=== PATIENT | female | born 1980 | race Caucasian/White ===

== ENCOUNTER 2017-03-02 17:26 | Emergency (ER) | payer OTHER ==
[2017-03-02 17:30] VITALS: BP 120/83; PULSE 87; TEMP 98.7; BMI 37.8
[2017-03-02] MEDS ORDERED: LORATADINE 10 MG TABLET PO ONE (17:56)
--- NOTE | 2017-03-02 17:56 | PDOC ---
History of Present Illness - General Chief Complaint: Cold Symptoms Stated Complaint: COUGHING/CONGESTION Time Seen by Provider: 03/02/17 17:33 History Source: Patient Exam Limitations: No Limitations - History of Present Illness Initial Comments: CHIEF COMPLAINT: 36 y/o afebrile female with no significant PMH c/o cough and sore throat x 10 days. HISTORY OF PRESENT ILLNESS: Pt was seen at an urgent care 10 days ago and was diagnosed with strep throat. She was treated with antibiotics and felt better but then developed a dry cough. She states the cough is worse at night. She has been taking robitussin with little relief. She denies f/c, n/v/d, runny nose, nasal congestion, CP, SOB, abd pain, back pain. Vital signs on arrival are within normal limits. REVIEW OF SYSTEMS: GENERAL/CONSTITUTIONAL: No fever/chills. No weakness. No weight change. HEAD, EYES, EARS, NOSE AND THROAT: No change in vision. No ear pain or discharge. No sore throat. CARDIOVASCULAR: No chest pain or shortness of breath. RESPIRATORY: +dry cough. No wheezing or hemoptysis. GASTROINTESTINAL: No abd pain, nausea, vomiting, diarrhea. GENITOURINARY: No dysuria, frequency, or change in urination. MUSCULOSKELETAL: No joint or muscle swelling or pain. No neck or back pain. SKIN: No rash or easy bruising. NEUROLOGIC: No headache, vertigo, loss of consciousness, or loss of sensation. PHYSICAL EXAM: GENERAL: The patient is awake, alert, and fully oriented, in no acute distress. SHe is well appearing and ambulatory. Very intermittent dry cough. HEAD: Normal with no signs of trauma. ENT: Pupils equal, round and reactive to light, extraocular movements intact, sclera anicteric, conjunctiva clear. Neck supple. No tonsilar erythema, edema or exudate. Uvula midline. LUNGS: Clear to auscultation bilaterally. Normal excursion. No respiratory distress or use of accessory muscles. CV: RRR, S1/S2, no MRG. Cap refill < 2 sec. ABDOMEN: Soft, non-distended, non-tender even to deep palpation, no hepatomegaly or splenomegaly, no masses. EXTREMITIES: Normal range of motion, no edema. NEUROLOGICAL: Normal speech, normal gait. CN II-XII grossly intact. PSYCH: Normal mood, normal affect. SKIN: Warm, dry, normal turgor, no rashes or lesions noted. Past History - Past Medical History Allergies/Adverse Reactions: Allergies Allergy/AdvReac Type Severity Reaction Status Date / Time No Known Allergies Allergy Verified 03/02/17 17:30 Home Medications: Ambulatory Orders Loratadine [Claritin] 10 mg PO DAILY #7 tablet 03/02/17 Other medical history: NONE - Psycho/Social/Smoking Cessation Hx Anxiety: No Suicidal Ideation: No Smoking History: Never smoked Hx Alcohol Use: No Drug/Substance Use Hx: No Substance Use Type: None *Physical Exam - Vital Signs Last Vital Signs Temp Pulse Resp BP Pulse Ox 98.7 F 87 20 120/83 98 03/02/17 17:27 03/02/17 17:27 03/02/17 17:27 03/02/17 17:27 03/02/17 17:27 Medical Decision Making - Medical Decision Making A/P: 36 y/o female with dry cough that is worse at night for the past 1 week. No fevers. Normal lung exam. WIll discharge to home with rx for claritin. Suggested she continue taking robitussin, sit up to sleep, use humidifier to help with cough and f/u with doctor within 1 week. Instructed her to return to the ER with any worsening or concerning symptoms. The patient verbalizes understanding of all instructions, has no further questions and is awaiting discharge. *DC/Admit/Observation/Transfer Diagnosis at time of Disposition: Cough Seasonal allergic rhinitis Qualifiers: Chronicity: acute Allergic rhinitis trigger: unspecified Qualified Code(s): J30.2 - Other seasonal allergic rhinitis - Discharge Dispostion Disposition: HOME Condition at time of disposition: Good - Patient Instructions Printed Discharge Instructions: DI for Cough -- Adult Additional Instructions: Discharge Instructions: -A prescription has been sent to your pharmacy for the cough; please take as prescribed for 7 days -Gargle with warm salt water -Keep taking Robitussin -Eat soft/cold foods to help with sore throat -Use humidifier to help with cough -Sit up to sleep to help with cough -Return to the ER with any worsening or concerning symptoms Instrucciones de walter: - Se romero enviado min receta a [place] para la tos; Lan[place] por favor segn lo prescrito por 7 gil -Gargar con agua salada tibia -Ayanna Robitussin - Coma alimentos suaves / fros para ayudar con dolor de garganta -Utilice humidificador para ayudar con la tos - Dormir para ayudar con la tos -Vuelva a la arturo de emergencias con cualquier empeoramiento o con respecto a los sntomas - Post Discharge Activity Work/School Note: Back to Work
[2017-03-02] MEDS ORDERED: LORATADINE 10 MG TABLET ONE (18:05)
== END 2017-03-02 18:30 | disposition home or self-care (01) ==
LOC: JERFT 17:26
DX: J30.2 Other seasonal allergic rhinitis (principal)
CPT/HCPCS: 84703; 99281-25